=== PATIENT | male | born 1985 | race Hispanic/Latino ===

== ENCOUNTER 2018-01-24 07:26 | Emergency (ER) | payer MEDICAID, OTHER ==
[2018-01-24] MEDS ORDERED: TETANUS/DIPHTHERIA TOXOID [ADULT] 0.5 ML VIAL IM ONE (07:44)
== END 2018-01-24 09:15 | disposition home or self-care (01) ==
LOC: EDH 07:26
DX: S61.212A Laceration without foreign body of right middle finger without damage to nail, initial encounter (principal); W22.8XXA Striking against or struck by other objects, initial encounter; Y93.89 Activity, other specified; Y92.098 Other place in other non-institutional residence as the place of occurrence of the external cause; Y99.8 Other external cause status
CPT/HCPCS: 12002; 29130; 73130; 90471; 90714

== ENCOUNTER 2020-08-20 10:13 | Emergency (ER) | payer OTHER | END 2020-08-20 11:20 | disposition home or self-care (01) | LOC: EDH 10:13 | DX: S83.91XA Sprain of unspecified site of right knee, initial encounter (principal); X58.XXXA Exposure to other specified factors, initial encounter; Y93.67 Activity, basketball; Y92.89 Other specified places as the place of occurrence of the external cause; Y99.8 Other external cause status | CPT/HCPCS: 29505; 73562 ==

== ENCOUNTER 2024-09-22 15:40 | Emergency (ER) | payer OTHER ==
[~2024-09-22] VITALS: Ht 182.9 cm; Wt 97.5 kg
[2024-09-22] MEDS: morPHINE 2 MG SYG IVP ONE ×2 (15:50→17:15)
[2024-09-22] MEDS: ondanSETRON 4MG INJ IVP ONE (15:50)
[2024-09-22] MEDS: 0.9%NACL 1000ML 1,000 ML IV ONE (15:51)
--- NOTE | 2024-09-22 16:11 | HMCIMG ---
Exam: NONCONTRAST CT BRAIN REASON: Headache . COMPARISON: None. TECHNIQUE: Images are obtained from vertex to the skull base. The exam was performed without IV contrast. FINDINGS: There is normal appearing brain parenchyma. There are no focal mass lesions. There is is no evidence of intracranial hemorrhage or acute stroke. Ventricles and sulci appear normal. Posterior fossa and brainstem structures are unremarkable. There is a right posterior parietal scalp contusion. There is no underlying skull fracture. IMPRESSION: 1. Normal intracranial findings. 2. Right posterior parietal scalp contusion without underlying fracture. CT was performed with one or more following dose reduction techniques: automated exposure control, adjustment of the mA and kv according to patient's size, or use of a iterative reconstruction technique.
[2024-09-22] MEDS ORDERED: IOHEXOL-350 75 ML VIAL IV ONE (16:22)
--- NOTE | 2024-09-22 16:22 | HMCIMG ---
CHEST 1VW REASON: Shortness of breath COMPARISON: None. FINDINGS: Single view of the chest was obtained. Lungs are clear. Heart size is normal. There is no pulmonary vascular congestion. Mediastinum and bony thorax appear unremarkable. IMPRESSION: 1. Normal single view chest x-ray.
--- NOTE | 2024-09-22 16:24 | HMCIMG ---
SHOULDER COMP 2+VWS RT REASON: Shortness of breath TECHNIQUE: 2 views were obtained. FINDINGS: There is a displaced midshaft fracture of the right clavicle. There is some overlapping of the proximal and distal fragment. Scapula and proximal humerus appear intact. IMPRESSION: 1. Displaced fracture midshaft right clavicle.
--- NOTE | 2024-09-22 16:24 | HMCIMG ---
ELBOW COMP 3+VWS RT REASON: Shortness of breath TECHNIQUE: 3 views were obtained. FINDINGS: There is no evidence of fracture or dislocation. There is no joint effusion. The soft tissues appear unremarkable. There is no evidence of a radiopaque foreign body. IMPRESSION: No acute findings.
--- NOTE | 2024-09-22 16:53 | HMCIMG ---
CT CERVICAL SPINE W/O CONTRAST REASON: Injury COMPARISON: None TECHNIQUE: Images are obtained from skull base to the upper thoracic spine in the axial plane. Sagittal and coronal reconstruction images were then performed. FINDINGS: There are normal appearing vertebral bodies. Alignment is unremarkable and disc interspace heights are well preserved. There is no evidence of fracture or subluxation. Soft tissues appear normal as well. IMPRESSION: Normal noncontrast CT of the cervical spine. CT was performed with one or more following dose reduction techniques: automated exposure control, adjustment of the mA and kv according to patient's size, or use of a iterative reconstruction technique.
--- NOTE | 2024-09-22 16:56 | HMCIMG ---
CT MAXILLOFACIAL W/O CONTRAST REASON: Injury COMPARISON: None TECHNIQUE: Axial facial CT was performed with axial images, with bone and soft tissue presentation. Sagittal and coronal reconstruction images were then performed. FINDINGS: There are normal-appearing facial bones. There are no fractures. Paranasal sinuses are normally aerated. Globes and retrobulbar soft tissues appear normal. Remaining soft tissues appear unremarkable as well. There are no foreign bodies. IMPRESSION: 1. Negative maxillofacial CT scan.
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
[2024-09-22] MEDS: FENTanyl CITRate PF 50 MCG/1 ML 2ML VIAL IVP ONE (18:04)
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
[2024-09-22] MEDS ORDERED: BACL10TA PO (18:49)
[2024-09-22] MEDS ORDERED: KETO10TA2 PO (18:49)
--- NOTE | 2024-09-22 18:53 | NUR ---
REFER TO TRAUMA FLOW SHEET FOR DOCUMENTATION./MONICA
[2024-09-22 19:03] VITALS: BP 124/80; PULSE 67; RESP 18; TEMP 98.5; O2SAT 100
== END 2024-09-22 18:56 | disposition home or self-care (01) ==
LOC: EDH 15:40
DX: S42.021A Displaced fracture of shaft of right clavicle, initial encounter for closed fracture (principal); S01.01XA Laceration without foreign body of scalp, initial encounter; V29.99XA Rider (driver) (passenger) of other motorcycle injured in unspecified traffic accident, initial encounter; Y93.89 Activity, other specified; Y92.89 Other specified places as the place of occurrence of the external cause; Y99.8 Other external cause status
CPT/HCPCS: 99285; 70450; 96374; 96375; 71045; 96361; 73080; 73030; 72125; 71260; 70486; 74177; 96376; 12001; J3010; J2270 ×2; J7030; J2405; Q9967

== ENCOUNTER 2024-10-05 15:58 | Emergency (ER) | payer OTHER ==
[~2024-10-05] VITALS: Ht 182.9 cm; Wt 97.5 kg
[~2024-10-05 15:58] MED LIST: BACL10TA PO; KETO10TA2 PO
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
--- NOTE | 2024-10-05 17:19 | NUR ---
Markel knutson in [facility] - 10/05/24 at 1720 by [email or web address] HERB REMOVED AT THIS TIME BY MD HUANG AT THIS TIME,
--- NOTE | 2024-10-05 17:20 | NUR ---
HERB REMOVED AT THIS TIME BY MD HUANG, 8 HERB WERE REMOVED. PATIENT TOLERATED WELL, NO SIGNS OR SYMPTOMS OF INFECTION NOTED. NO QUESTIONS ASKED BY PATIENT AT THIS TIME./OMNICA
[2024-10-05 17:21] VITALS: BP 124/69; PULSE 74; RESP 19; TEMP 98.6; O2SAT 100
== END 2024-10-05 17:24 | disposition home or self-care (01) ==
LOC: EDH 15:58
DX: S01.01XD Laceration without foreign body of scalp, subsequent encounter (principal); Z79.899 Other long term (current) drug therapy; V89.2XXD Person injured in unspecified motor-vehicle accident, traffic, subsequent encounter
CPT/HCPCS: 99281